=== PATIENT | male | born 1985 | race African-American/Black ===

== ENCOUNTER 2018-04-20 08:10 | Inpatient (IN) | payer SELFPAY ==
[2018-04-20] MEDS ORDERED: Lorazepam 2 MG/ML VIAL ONE ×2 (09:28→10:17)
[2018-04-20] MEDS ORDERED: diphenhydrAMINE 50 MG/ML VIAL ONE (09:49)
[2018-04-20] MEDS ORDERED: Haloperidol Lactate 5 MG/ML VIAL ONE ×2 (09:49→10:19)
[2018-04-20 10:48] LABS: #Basophils 0.1 thou/uL (0.0-0.2); #Lymphocytes 4.4 thou/uL (1.20-3.40); %Basophils 0.6 % (0.0-1.0); %Lymphocytes 32.7 % (21.0-51.0); %Monocytes 7.4 % (0.0-10.0); %Neutrophils 59.3 % (42.0-75.0); Hemoglobin 16.9 g/dL (14.0-18.0); Mean Corpuscular HGB CONC 32.2 g/dL (32.0-36.0); Mean Corpuscular Hemoglobin 28.3 pg (27.0-31.0); Mean Corpuscular Volume 87.9 fL (78.0-98.0); Mean Platelet Volume 8.9 fL (7.4-10.4); Platelet Count 269 thou/uL (130-400); RBC Distribution Width 11.7 % (11.5-14.5); Red Blood Cell (RBC) Count 5.98 mill/uL (4.70-6.10); White Blood Cell (WBC) Count 13.5 thou/uL (4.8-10.8)
[2018-04-20 11:05] LABS: Amphetamine Not Detected (NotDetected); Barbiturates Screen Not Detected (NotDetected); Benzodiazepine Screen Not Detected (NotDetected); Cocaine Metabolite Screen Not Detected (NotDetected); Medtox Control Line Valid? VALID (VALID); Medtox Reader # READER 1; Methadone Not Detected (NotDetected); Methamphetamine Not Detected (NotDetected); Opiate Screen Not Detected (NotDetected); Oxycodone Screen Not Detected (NotDetected); Phencyclidine (PCP) Not Detected (NotDetected); THC/Cannabinoid Screen Detected (NotDetected); Tricyclic Screen Not Detected (NotDetected)
[2018-04-20 11:07] LABS: ALT (SGPT) 47 U/L (8-55); AST (SGOT) 63 U/L (5-34); Acetaminophen Less than 6.0 mcg/mL (10.0-30.0); Albumin 5.5 g/dL (3.5-5.0); Alcohol Less than 10 mg/dL (Less than 10); Alkaline Phosphatase 81 U/L (40-150); Anion Gap 33 mmol/L (10-20); BUN (Urea Nitrogen) 12 mg/dL (8.9-20.6); Bilirubin, Total 1.2 mg/dL (0.2-1.2); Calc. Creatinine Clearance 0 mL/min (70-130); Calcium 10.4 mg/dL (7.8-10.44); Chloride 105 mmol/L (98-107); Estimated GFR-MDRD 67; Globulin 3.8 g/dL (2.4-3.5); Glucose 120 mg/dL (70-105); Potassium 3.5 mmol/L (3.5-5.1); Protein, Total 9.3 g/dL (6.0-8.3); Salicylate Less than 8.0 mg/dL (15.0-30.0); Sodium 143 mmol/L (136-145)
[2018-04-20 11:14] LABS: Carbon Dioxide 9 mmol/L (22-29)
[2018-04-20 12:05] LABS: Troponin I 0.015 ng/mL (< 0.028)
[2018-04-20 12:15] LABS: Base Excess-Venous -1.9 mmol/L (0 (+/- 2.5)); Bicarbonate (HCO3v) 23.8 mmol/L (1.0-85.0); CO2 Tension (PvCO2) 42.7 mmHg (41.0-51.0); Calcium, Ionized 1.11 mmol/L (1.12-1.32); Hemoglobin - Calc 15.4 g/dL (12.0-18.0); O2 Tension (PvO2) 58.4 mmHg (35.0-45.0); Potassium 3.8 mmol/L (3.4-4.7); T. Carbon Dioxide 25.1 mmol/L (1.0-85.0); pH (Venous) 7.353 (7.35-7.45); vO2 Saturation-calc 88.6 % (94-98)
[2018-04-20] MEDS ORDERED: Haloperidol Lactate 5 MG/ML VIAL IM PRN (16:39)
[2018-04-20 16:47] LABS: ALT (SGPT) 47 U/L (8-55); AST (SGOT) 107 U/L (5-34); Albumin 4.4 g/dL (3.5-5.0); Alkaline Phosphatase 62 U/L (40-150); Anion Gap 15 mmol/L (10-20); BUN (Urea Nitrogen) 9 mg/dL (8.9-20.6); Bilirubin, Total 1.3 mg/dL (0.2-1.2); Calc. Creatinine Clearance 0 mL/min (70-130); Calcium 9.2 mg/dL (7.8-10.44); Carbon Dioxide 23 mmol/L (22-29); Chloride 107 mmol/L (98-107); Estimated GFR-MDRD Greater than 90; Globulin 2.9 g/dL (2.4-3.5); Glucose 85 mg/dL (70-105); Potassium 3.9 mmol/L (3.5-5.1); Protein, Total 7.3 g/dL (6.0-8.3); Sodium 141 mmol/L (136-145)
[2018-04-20 17:00] LABS: CK (CPK) 5880 U/L (30-200)
[2018-04-20] MEDS: Sodium Chloride 0.9% 1,000 ML IV SCH ×2 (17:14→23:49)
--- NOTE | 2018-04-20 20:37 | PDOC.FPRHP ---
- History of Present Illness Chief Complaint: AMS History of Present Illness: 32 year old male with PMH of marijuana use that presents with AMS. Patient's states that he has had decreased appetite and some diaphoresis since Wednesday. at 1:15 this AM he was talking in his sleep. She tried to arouse him, but he wouldn't respond to her. The words he was saying did not make since. He apparently watched a movie last night and he was repeating things from the movie. He then got up and started pacing near the side of the bed. Patient has been under a lot of stress lately. He reportedly lost his job in January and has been unemployed since. He does have a history of smoking marijuana. The patient' s states that she does not recall him smoking any time recently. He reportedly took a "sleeping pill" last night. The is uncertain of which pill. ED nurse informed me that a friend was with him earlier and told her that he got the pill off of the streets. Patient has never experienced anything like this in the past. He has no psych history. Prior to this most recent episode he was doing well. At baseline he is kind hearted per the patient's . He got so agitated and combative today that the family had to call EMS to take him to the hospital. ED Course: Given 10 mg haldol, 4 mg ativan, and 25 mg benadryl. Given 2L NS. - Allergies/Adverse Reactions Allergies Allergy/AdvReac Type Severity Reaction Status Date / Time No Known Allergies Allergy Verified 04/20/18 17:59 - Home Medications Medication Instructions Recorded Confirmed Type No Known 04/20/18 04/20/18 History - History PMHx: Marijuana use disorder PSHx: None FHx: History of DM and HTN on mother and father's side. No psych history. Social: Per patient's , he has used marijuana in the past. - Review of Systems ROS unobtainable: due to mental status (Patient's gave brief history given in HPI) - Vital signs BP: 151/85 HR: 93 RR: 21 Tmax: 99.2 F Pox: 100% on RA Wt: 113.4 kg - Physical Exam -Constitutional: Babbling words that did not make sense in context of conversation. Unable to answer direct questions. Appeared agitated and restless. HEENT: normocephalic and atraumatic -HEENT: Dry mucous membranes Neck: supple Heart: RRR, no murmurs/rubs/gallops Lungs: CTAB, no wheezing Abdomen: soft, bowel sounds present -Neurological: Unable to adequately examine -Psychiatric: Agitated, incomprehensible babbling FMR H&P: Results - Labs Result Diagrams: 04/21/18 00:22 04/21/18 00:22 Lab results: WBC 13.5 thou/uL (4.8-10.8) H 04/20/18 10:29 Hgb 16.9 g/dL (14.0-18.0) 04/20/18 10:29 Hct 52.5 % (42.0-52.0) H 04/20/18 10:29 MCV 87.9 fL (78.0-98.0) 04/20/18 10:29 Plt Count 269 thou/uL (130-400) 04/20/18 10:29 Neutrophils % 59.3 % (42.0-75.0) 04/20/18 10:29 VBG pCO2 42.7 mmHg (41.0-51.0) 04/20/18 12:12 VBG pO2 58.4 mmHg (35.0-45.0) H 04/20/18 12:12 Sodium 141 mmol/L (136-145) 04/20/18 16:15 Potassium 3.9 mmol/L (3.5-5.1) 04/20/18 16:15 Chloride 107 mmol/L (98-107) 04/20/18 16:15 Carbon Dioxide 23 mmol/L (22-29) 04/20/18 16:15 BUN 9 mg/dL (8.9-20.6) 04/20/18 16:15 Creatinine 0.96 mg/dL (0.6-1.3) 04/20/18 16:15 Glucose 85 mg/dL (70-105) 04/20/18 16:15 Calcium 9.2 mg/dL (7.8-10.44) 04/20/18 16:15 Total Bilirubin 1.3 mg/dL (0.2-1.2) H 04/20/18 16:15 AST 107 U/L (5-34) H 04/20/18 16:15 ALT 47 U/L (8-55) 04/20/18 16:15 Alkaline Phosphatase 62 U/L (40-150) 04/20/18 16:15 Creatine Kinase 5880 U/L (30-200) H 04/20/18 16:15 CK-MB (CK-2) 6.0 ng/mL (0-6.6) 04/20/18 10:29 Serum Total Protein 7.3 g/dL (6.0-8.3) 04/20/18 16:15 Albumin 4.4 g/dL (3.5-5.0) 04/20/18 16:15 FMR H&P: A/P - Problem List (1) Toxic encephalopathy Current Visit: Yes Status: Acute Code(s): G92 - TOXIC ENCEPHALOPATHY (2) Rhabdomyolysis Current Visit: Yes Status: Acute Code(s): M62.82 - RHABDOMYOLYSIS - Plan 32 year old male presents with AMS 1. Toxic encephalopathy - Likely 2/2 ingestion of unknown drug; states he took "sleeping pill" last night - Continue to monitor - Soft restraints - Haldol PRN for agitation - CT brain pending - LA pending - Mild leukocytosis, will continue to trend; unlikely infection - Continue to monitor 2. Rhabdomyolysis - s/p 2L NS -NS at 200 mL/hr - CPK 3023 --> 5880 - Repeat in AM\\ Dispo: Stable. LOS >48 hours. Likely toxic encephalopathy 2/2 ingestion of unknown drug. Continue fluid resuscitation. FMR H&P: Upper Level - Plan Date/Time: 04/20/182030 I, [], have evaluated this patient and agree with findings/plan as outlined by chief internal auditor resident. Pertinent changes/additions are listed here. Attending Addendum - Attending Addendum Date/Time: 04/21/18 1614 I personally evaluated the patient and discussed the management with Dr. Browne on 04/20/2018 I agree with the History, Examination, Assessment and Plan documented above with any addition or exceptions noted below- Briefly this is a 32 year old gentleman with no known PMH who presented with altered MS. Patient unable to give history due to his altered state. Per ER notes, patient had taken an unknown sleeping pill and then was found altered this morning. PMH/PSH/Meds/All reviewed and agree with resident's documentation. Afebrile VSS. Exam repeated by me and agree with resident's findings. A/P: 1) Toxic encephalopathy- UDS (+) for MJ; suspect ingestion of unknown type. Continue restraints for patient and provider safety. 2) Rhabdomyolysis- Continue IVF. Monitor urine output.
[2018-04-20 22:25] LABS: Lactic Acid 15.8 mmol/L (0.5-2.2)
[2018-04-21 00:36] LABS: #Basophils 0.1 thou/uL (0.0-0.2); #Lymphocytes 3.1 thou/uL (1.20-3.40); #Monocytes 1.1 thou/uL (0.11-0.59); #Neutrophils 5.7 thou/uL (1.40-6.50); %Eosinophils 0.3 % (0.0-10.0); %Neutrophils 56.7 % (42.0-75.0); Hemoglobin 14.4 g/dL (14.0-18.0); Mean Corpuscular HGB CONC 33.5 g/dL (32.0-36.0); Mean Corpuscular Volume 86.7 fL (78.0-98.0); Mean Platelet Volume 8.6 fL (7.4-10.4); Platelet Count 219 thou/uL (130-400); RBC Distribution Width 11.5 % (11.5-14.5); Red Blood Cell (RBC) Count 4.95 mill/uL (4.70-6.10)
[2018-04-21 00:57] LABS: Anion Gap 15 mmol/L (10-20); BUN (Urea Nitrogen) 9 mg/dL (8.9-20.6); Calc. Creatinine Clearance 198 mL/min (70-130); Carbon Dioxide 20 mmol/L (22-29); Chloride 109 mmol/L (98-107); Estimated GFR-MDRD Greater than 90; Glucose 79 mg/dL (70-105); Potassium 3.9 mmol/L (3.5-5.1); Sodium 140 mmol/L (136-145)
[2018-04-21 01:05] LABS: Anion Gap 16 mmol/L (10-20); BUN (Urea Nitrogen) 9 mg/dL (8.9-20.6); Calc. Creatinine Clearance 196 mL/min (70-130); Carbon Dioxide 20 mmol/L (22-29); Chloride 110 mmol/L (98-107); Estimated GFR-MDRD Greater than 90; Glucose 75 mg/dL (70-105); Potassium 3.9 mmol/L (3.5-5.1); Sodium 142 mmol/L (136-145)
[2018-04-21 01:11] LABS: CK (CPK) 4689 U/L (30-200)
[2018-04-21 01:18] LABS: CK (CPK) 4810 U/L (30-200)
[2018-04-21] MEDS: Sodium Chloride 0.9% 1,000 ML IV SCH ×4 (03:52→20:37)
--- NOTE | 2018-04-21 05:28 | PDOC.FM ---
- Subjective Subjective: Pt seems to be more lucid this AM in person compared with mental status as described in notes and at checkout. Pt is oriented to person and place but not time. Pt stated birthday when asked what day it is. Denies any pain or problems but reporting capability is questionable. ROS: unable to obtain. - Objective Vital Signs & Weight: Vital Signs (12 hours) Temp Pulse Resp BP Pulse Ox 04/21/18 04:00 99.1 F 88 23 H 137/79 100 04/21/18 00:00 99.3 F 88 24 H 134/90 100 04/20/18 20:09 99.2 F 93 21 H 100 04/20/18 20:02 99.2 F 93 21 H 151/85 H 100 Weight Weight 113.398 kg I&O: 04/19/18 04/20/18 04/21/18 06:59 06:59 06:59 Intake Total 600 Output Total 0 Balance 600 Result Diagrams: 04/21/18 00:22 04/21/18 00:22 <Solo Jimenez - Last Filed: 04/21/18 08:50> - Objective Vital Signs & Weight: Vital Signs (12 hours) Temp Pulse Resp BP Pulse Ox 04/21/18 12:00 98.4 F 89 17 127/74 100 04/21/18 07:49 98.5 F 85 22 H 04/21/18 07:45 98.5 F 85 22 H 137/79 100 04/21/18 04:00 99.1 F 88 23 H 137/79 100 Weight Weight 113.398 kg I&O: 04/20/18 04/21/18 04/22/18 06:59 06:59 06:59 Intake Total 2700 200 Output Total 1350 Balance 1350 200 Result Diagrams: 04/21/18 00:22 04/21/18 00:22 <Naima Vela - Last Filed: 04/21/18 13:41> Phys Exam - Physical Examination peacefully resting. tried to get up twice. HEENT: moist MMs, sclera anicteric Respiratory: no wheezing, clear to auscultation bilateral Cardiovascular: RRR, no significant murmur Gastrointestinal: soft, non-tender Musculoskeletal: pulses present Neurological: moves all 4 limbs Psychiatric: normal affect Deviation from normal: A and O x2 Skin: no rash, normal turgor <Solo Jimenez - Last Filed: 04/21/18 08:50> Dx/Plan (1) Rhabdomyolysis Code(s): M62.82 - RHABDOMYOLYSIS Status: Acute (2) Toxic encephalopathy Code(s): G92 - TOXIC ENCEPHALOPATHY Status: Acute - Plan Plan: 32 year old male presents with AMS Toxic encephalopathy A- Likely 2/2 ingestion of unknown drug; states he took "sleeping pill" last night, uds positive for canabanoids. LA 15.8 -> .6. Mild leukocytosis resolved. P- Continue to monitor - secure restraints in ED until mental status improves - Haldol PRN for agitation - CT brain pending - Continue to monitor Rhabdomyolysis A- CPK 3023 --> 5880 --> 4689 P- NS at 200 mL/hr - monitor CPK <Solo Jimenez - Last Filed: 04/21/18 08:50> Attending Addendum - Attending Addendum Date/Time: 04/21/18 7282 I personally evaluated the patient and discussed the management with Dr. Jimenez. I agree with the History, Examination, Assessment and Plan documented above with any addition or exceptions noted below. The patient's PAOLO has resolved. He is still encephalopathic though he can answer some orientation questions intermittently. CK mildly decreased. Continuing fluids. Trend CK. <Naima Vela - Last Filed: 04/21/18 13:41>
--- NOTE | 2018-04-21 12:18 | CT ---
CT HEAD NONCONTRAST: HISTORY: Altered mental status. FINDINGS: No comparison. There is no evidence of acute intracranial hemorrhage or infarct. Ventricles appear normal in size, shape, and position. There is no mass effect or shift of midline structures. Visual ized paranasal sinuses remain well aerated. IMPRESSION: No acute intracranial abnormalities are demonstrated. POS: [facility]
[2018-04-21 16:09] LABS: Acetaminophen Less than 6.0 mcg/mL (10.0-30.0); Alcohol Less than 10 mg/dL (Less than 10); Salicylate Less than 8.0 mg/dL (15.0-30.0)
[2018-04-21] MEDS ORDERED: Ondansetron ODT 4 MG TAB SL PRN (19:48)
[2018-04-21] MEDS ORDERED: Acetaminophen 325 MG TAB PO PRN (19:48)
[2018-04-21] MEDS ORDERED: Ondansetron HCl/PF 4 MG/2 ML Vial IVP PRN (19:48)
[2018-04-22] MEDS: Sodium Chloride 0.9% 1,000 ML IV SCH ×5 (00:58→20:08)
--- NOTE | 2018-04-22 06:34 | PDOC.FM ---
- Subjective Subjective: Pt is unrestrained this morning and able to converse well. Reports feeling much better and feeling himself. Only complaint is chills and "shakes" that he has been experiencing for one month now. Reports no recent sick contacts or possible causes of the tremors. No fevers. Reports only canabis and xanax use. Reports using 3 xanax of unkown dosage every day, drinking at least 1 alcoholic beverage per day. Last drink and xanax is reported to be 2 weeks ago. ros: chills, no fevers, no cp no palp, no sob no cough, no n/v - Objective Vital Signs & Weight: Vital Signs (12 hours) Temp Pulse Resp BP BP Pulse Ox 04/22/18 04:00 98.0 F 75 20 134/75 96 04/22/18 00:00 98.2 F 83 20 131/80 97 04/21/18 20:00 98.7 F 79 20 04/21/18 19:25 98.7 F 79 20 132/73 97 Weight Weight 113.398 kg I&O: 04/20/18 04/21/18 04/22/18 06:59 06:59 06:59 Intake Total 2700 4563 Output Total 1350 3650 Balance 1350 913 Result Diagrams: 04/21/18 00:22 04/22/18 07:27 <Solo Jimenez - Last Filed: 04/22/18 08:27> - Objective Vital Signs & Weight: Vital Signs (12 hours) Temp Pulse Resp BP BP BP Pulse Ox 04/23/18 16:00 98.5 F 73 131/82 04/23/18 12:00 98.6 F 75 152/84 H 04/23/18 09:00 98.5 F 76 04/23/18 08:02 133/62 04/23/18 08:00 98.5 F 76 18 100 04/23/18 07:59 98.9 F 70 16 133/62 96 04/23/18 07:40 98.9 F 70 18 133/62 96 04/23/18 06:21 128/80 04/23/18 05:00 128/80 04/23/18 04:41 98.5 F 64 20 128/80 96 Weight Weight 113.398 kg Most Recent Monitor Data Heart Rate from ECG 67 NIBP 131/82 NIBP BP-Mean 118 Respiration from ECG 24 SpO2 100 I&O: 04/22/18 04/23/18 04/24/18 06:59 06:59 06:59 Intake Total 4563 5450 570 Output Total 4050 500 2630 Balance 513 4950 -2060 Result Diagrams: 04/21/18 00:22 04/23/18 03:43 <MirianNaima - Last Filed: 04/23/18 16:28> Phys Exam - Physical Examination Constitutional: NAD HEENT: PERRLA ( ), moist MMs Respiratory: no wheezing, clear to auscultation bilateral Cardiovascular: RRR, no significant murmur Gastrointestinal: soft, non-tender Musculoskeletal: no edema, pulses present Neurological: moves all 4 limbs mild intermittent full body fine tremors Psychiatric: normal affect Deviation from normal: no AVH/SI Skin: no rash, normal turgor <Solo Jimenez - Last Filed: 04/22/18 08:27> Dx/Plan (1) Rhabdomyolysis Code(s): M62.82 - RHABDOMYOLYSIS Status: Acute (2) Toxic encephalopathy Code(s): G92 - TOXIC ENCEPHALOPATHY Status: Acute - Plan Plan: 32 year old male presents with AMS Toxic encephalopathy A- Mental status greatly improved. Likely 2/2 ingestion of unknown drug; states he took "sleeping pill" last night, uds positive for canabanoids. LA 15.8 -> .6. Mild leukocytosis resolved. Pt unrestrained P- Continue to monitor - no restraints necessary - Haldol PRN for agitation - CT brain normal - possible discharge today Rhabdomyolysis A- CPK 3023 --> 5880 --> 4689 -> 3037 P- Decrease NS at 100 mL/hr - monitor CPK Xanax misuse/EtOH use A- pt reports using 3 xanax and at least 1 drink/day with most recent of each being 2 weeks ago. Says shakes and chills started a month ago but pt was not showing these symptoms on presentation. P- initiate ANIA protocol -await serum drug screen -hiv/hepc/rpr <Solo Jimenez - Last Filed: 04/22/18 08:27> Attending Addendum - Attending Addendum Date/Time: 04/22/18 4759 I personally evaluated the patient and discussed the management with Dr. Jimenez. I agree with the History, Examination, Assessment and Plan documented above with any addition or exceptions noted below. The patient is feeling better. He was standing up walking in the room and is A& O x 3. No tremors or shaking at this time. CK has increased. Continue fluids. <Naima Vela - Last Filed: 04/23/18 16:28>
[2018-04-22 08:06] LABS: Anion Gap 13 mmol/L (10-20); BUN (Urea Nitrogen) 6 mg/dL (8.9-20.6); Calc. Creatinine Clearance 218 mL/min (70-130); Carbon Dioxide 23 mmol/L (22-29); Chloride 105 mmol/L (98-107); Estimated GFR-MDRD Greater than 90; Glucose 86 mg/dL (70-105); Potassium 3.8 mmol/L (3.5-5.1); Sodium 137 mmol/L (136-145)
[2018-04-22 08:19] LABS: CK (CPK) 7504 U/L (30-200)
[2018-04-22 09:21] LABS: Syphilis Antibody Nonreactive (Nonreactive); Syphilis Antibody Index 0.14 S/CO (<1.00 Non-Reactive)
[2018-04-22 09:22] LABS: HIV (1/2) Antibody/Antigen Non-Reactive (NonReactive); HIV 1/2 INDEX 0.22 S/CO (<1.00); Hep C IgG Ab Non-Reactive (NonReactive); Hep C Index 0.05 S/CO (0-0.79)
[2018-04-22 09:24] LABS: Acetaminophen Less than 6.0 mcg/mL (10.0-30.0); Alcohol Less than 10 mg/dL (Less than 10); Salicylate Less than 8.0 mg/dL (15.0-30.0)
[2018-04-22] MEDS ORDERED: Sodium Chloride 0.9% 1,000 ML IV SCH (12:45)
--- NOTE | 2018-04-22 17:13 | PRG ---
DATE OF SERVICE: 04/22/2018 The patient was seen in conjunction with Dr. Solo Jimenez. The patient has been admitted for toxic alcohol encephalopathy and rhabdomyolysis. The patient's CK was steadily decreasing, but this morni ng increased from 8972-7040. During rounds this morning, the patient was standing up in his room and stating that he was feeling much better. Earlier this morning, when Dr. Jimenez first saw him, the patient reportedly was having shaking chills and I do know if this accounts for his increase in CK le raimundo. His renal function remained stable with a creatinine of 0.78. To Dr. Underwood this morning, the pa geoff endorsed that he was getting benzos from an unknown source and taking daily as well as drinking alcohol, but he had not had any in a couple of weeks prior to this admission. We will check a TSH t marli. Continue aggressive IV fluids and trending of his CK.
[2018-04-23] MEDS: Sodium Chloride 0.9% 1,000 ML IV SCH ×2 (00:33→05:33)
[2018-04-23 04:34] LABS: ALT (SGPT) 94 U/L (8-55); AST (SGOT) 225 U/L (5-34); Albumin 4.2 g/dL (3.5-5.0); Alkaline Phosphatase 60 U/L (40-150); Anion Gap 13 mmol/L (10-20); BUN (Urea Nitrogen) 5 mg/dL (8.9-20.6); Bilirubin, Total 0.7 mg/dL (0.2-1.2); Calc. Creatinine Clearance 215 mL/min (70-130); Calcium 9.2 mg/dL (7.8-10.44); Carbon Dioxide 22 mmol/L (22-29); Chloride 106 mmol/L (98-107); Estimated GFR-MDRD Greater than 90; Globulin 2.7 g/dL (2.4-3.5); Glucose 98 mg/dL (70-105); Potassium 3.6 mmol/L (3.5-5.1); Protein, Total 6.9 g/dL (6.0-8.3); Sodium 137 mmol/L (136-145)
[2018-04-23 05:01] LABS: CK (CPK) 11941 U/L (30-200)
--- NOTE | 2018-04-23 06:41 | PDOC.FM ---
- Subjective Subjective: Pt reports continued improvement of mental status but also continued tremors and chills. on further interview pt admitted to taking 4 xanax per day with alcohol and that his last dose was 5 days ago, not 2 weeks ago. He also admitted to adderal. Pt is motivated to stop using, motivating factors include his children and drive to be independent of others and self sufficient. No SI/HI/AVH - Objective Vital Signs & Weight: Vital Signs (12 hours) Temp Pulse Resp BP BP Pulse Ox 04/23/18 06:21 128/80 04/23/18 05:00 128/80 04/23/18 04:41 98.5 F 64 20 128/80 96 04/23/18 00:15 98.6 F 55 L 20 107/69 97 04/23/18 00:10 107/69 04/22/18 20:56 132/81 04/22/18 20:00 98.4 F 67 20 132/81 97 Weight Weight 113.398 kg I&O: 04/21/18 04/22/18 04/23/18 06:59 06:59 06:59 Intake Total 2700 4563 5450 Output Total 1350 4050 500 Balance 9032 399 4666 Result Diagrams: 04/21/18 00:22 04/23/18 03:43 <Solo Jimneez - Last Filed: 04/23/18 07:10> - Objective Vital Signs & Weight: Vital Signs (12 hours) Temp Pulse BP 04/23/18 16:00 98.5 F 73 131/82 04/23/18 12:00 98.6 F 75 152/84 H Weight Weight 113.398 kg Most Recent Monitor Data Heart Rate from ECG 82 NIBP 136/74 NIBP BP-Mean 85 Respiration from ECG 32 SpO2 100 I&O: 04/22/18 04/23/18 04/24/18 06:59 06:59 06:59 Intake Total 4563 5450 866.3 Output Total 4050 500 3010 Balance 513 4950 -2143.7 Result Diagrams: 04/21/18 00:22 04/23/18 03:43 <Naima Vela - Last Filed: 04/23/18 22:43> Phys Exam - Physical Examination Pt appears distracted and mildy distressed, fine generalized tremors HEENT: moist MMs, sclera anicteric Respiratory: no wheezing, clear to auscultation bilateral Cardiovascular: RRR, no significant murmur Gastrointestinal: soft, non-tender Musculoskeletal: no edema, pulses present Neurological: normal sensation, moves all 4 limbs Psychiatric: A&O x 3 Deviation from normal: poor eye contact Skin: no rash, normal turgor <Solo Jimenez - Last Filed: 04/23/18 07:10> Dx/Plan (1) Rhabdomyolysis Code(s): M62.82 - RHABDOMYOLYSIS Status: Acute (2) Toxic encephalopathy Code(s): G92 - TOXIC ENCEPHALOPATHY Status: Acute - Plan Plan: 32 year old male presents with AMS Toxic encephalopathy A- Mental status greatly improved. Likely 2/2 ingestion of unknown drug vs xanax with adderall; states he took "sleeping pill" last night, uds positive for canabanoids. LA 15.8 -> .6. Mild leukocytosis resolved. Pt unrestrained P- Continue to monitor - no restraints necessary - Haldol PRN for agitation - CT brain normal - possible discharge today or tomorrow Rhabdomyolysis A- CPK 3023 --> 5880 --> 4689 -> 3037 -->33344. bump likely due to xanax/etoh withdrawal. ASE protocol P- maintain NS at 200 mL/hr - monitor CPK Xanax misuse/EtOH use A- pt reports using 4 xanax and at least 1 drink/day with most recent of each being 5 days ago. Says shakes and chills started a month ago but pt was not showing these symptoms on presentation. P- ANIA protocol -1mg ativan now -repeat urine drug screen -hiv/hepc/rpr negative <MacoupinSolo éprez - Last Filed: 04/23/18 07:10> Attending Addendum - Attending Addendum Date/Time: 04/23/18 0840 I personally evaluated the patient and discussed the management with Dr. Jimenez. I agree with the History, Examination, Assessment and Plan documented above with any addition or exceptions noted below. The patient started having chills and tremors again this morning after doing better yesterday. CK is up to 11,000. Pt's ASE score was 6. Pt was first moved to imcu and now ICU for withdrawal from benzo's. Today he admits to taking xanax and adderall and marijuana. He also admits to using more than first thought and more recently than he first thought. Pt is being started on precedex, continue iv fluids, trend creatinine and CK. <Naima Vela - Last Filed: 04/23/18 22:43>
[2018-04-23] MEDS ORDERED: Lorazepam 1 MG TAB PO SCH (07:15)
--- NOTE | 2018-04-23 08:00 | PDOC.EVN ---
Event Note - Event Note Event Note: Residents paged at 805. Pt has received PO ativan after ANIA score of 6. Pt reports taking xanax, adderall and drinking daily. Last xanax and drink was day prior to admission. He is oriented to person and place but not year. On exam he is diaphoretic and has diffuse tremors but not tachycardic. Starting scheduled librium. <Ginny James - Last Filed: 04/23/18 07:57> - Event Note Event Note: Patient is also being transferred from [place] [id number] to the [facility]. <Naima Vela - Last Filed: 04/23/18 16:57>
[2018-04-23] MEDS ORDERED: Lorazepam 2 MG/ML VIAL SLOW IVP PRN (08:16)
[2018-04-23 09:15] LABS: Amphetamine Not Detected (NotDetected); Barbiturates Screen Not Detected (NotDetected); Benzodiazepine Screen Not Detected (NotDetected); Cocaine Metabolite Screen Not Detected (NotDetected); Medtox Control Line Valid? VALID (VALID); Medtox Reader # READER 4; Methadone Not Detected (NotDetected); Methamphetamine Not Detected (NotDetected); Opiate Screen Not Detected (NotDetected); Oxycodone Screen Not Detected (NotDetected); Phencyclidine (PCP) Not Detected (NotDetected); THC/Cannabinoid Screen Detected (NotDetected); Tricyclic Screen Not Detected (NotDetected)
[2018-04-23] MEDS: Sodium Bicarbonate 70 MEQ in Sodium Chloride 0.45% 1,000 ML IV SCH ×3 (09:50→22:56)
--- NOTE | 2018-04-23 10:11 | CON ---
DATE OF CONSULTATION: 04/23/2018 This consult encompassed 35 minutes critical care time. HISTORY OF PRESENT ILLNESS: This is a 32-year-old male who was admitted to the hospital on 8 by the [facility]. He came in with decreased responsiveness. Apparently, he uses Add erall, Xanax, marijuana and possibly K2 at home. He has developed agitation at a course of his hospi talization and was felt to be in drug withdrawal. At the current time, he is calm, but extremely sha [place]. PAST MEDICAL HISTORY: Marijuana use disorder. PAST SURGICAL HISTORY: None. FAMILY MEDICAL HISTORY: Remarkable for diabetes and hypertension. SOCIAL HISTORY: Uses Xanax on the street, marijuana and Adderall. REVIEW OF SYSTEMS: Twelve point review of systems otherwise negative. PHYSICAL EXAMINATION: VITAL SIGNS: Temperature 98.9, pulse 70, blood pressure 133/62, O2 saturation 96% on room air. HEENT: Unremarkable. NECK: Without adenopathy or JVD. LUNGS: Clear. CARDIOVASCULAR: S1, S2, slightly tachycardic. ABDOMEN: Soft, nontender. EXTREMITIES: No edema. Extremities are tremulous. LABORATORY DATA: White blood cell count 10, hematocrit 42, platelet count 219. Sodium 137, potassiu m 3.6, chloride 106, CO2 22, BUN 5, creatinine 0.7, glucose 98. CPK 11,941. ASSESSMENT: 1. Drug withdrawal. 2. Rhabdomyolysis, which is severe. RECOMMENDATIONS: 1. He needs his IV fluids alkalinized to help eliminate the protein. 2. Start Precedex for withdrawal. 3. Trend his labs.
--- NOTE | 2018-04-23 16:07 | ULT ---
RIGHT UPPER QUADRANT ULTRASOUND: 04/23/18 HISTORY: 32-year-old male with elevated liver enzymes. Liver echogenicity is somewhat coarse and heterogeneous, evidence for minimal nonspecific hepatic par enchymal process. The gallbladder demonstrates no evidence of gallstones, wall thickening, edema, per icholecystic fluid. No ductal dilatation. Visualized pancreas and right kidney are unremarkable. IMPRESSION: Minimal increased coarse liver echogenicity evidence for nonspecific hepatocellular disease. No evide nce of gallstones or ductal dilatation. POS: [facility]
[2018-04-24] MEDS: Sodium Bicarbonate 70 MEQ in Sodium Chloride 0.45% 1,000 ML IV SCH ×5 (05:12→23:03)
--- NOTE | 2018-04-24 05:26 | PDOC.FM ---
- Subjective Subjective: Pt reports feeling better since starting precedex and sodium bicarb yesterday. Reports that tremors have been less severe and that they usually have an onset when the team comes in to the room. Pt refused one dose of librium due to him feeling that the librium makes his tremors worse. ros: no fevers/chills, no cp no palpitations, no n/v - Objective Vital Signs & Weight: Vital Signs (12 hours) Temp Pulse Resp BP Pulse Ox 04/24/18 04:00 98.8 F 141/79 H 04/24/18 00:00 98.7 F 166/88 H 04/23/18 20:00 98.8 F 72 21 H 140/70 100 04/23/18 19:00 156/70 H Weight Weight 113.398 kg Most Recent Monitor Data Heart Rate from ECG 60 NIBP 138/93 NIBP BP-Mean 102 Respiration from ECG 18 SpO2 100 I&O: 04/22/18 04/23/18 04/24/18 06:59 06:59 06:59 Intake Total 4563 5450 1346.3 Output Total 4050 500 4160 Balance 513 4950 -2813.7 Result Diagrams: 04/21/18 00:22 04/24/18 05:09 <Solo Jimenez - Last Filed: 04/24/18 07:31> - Objective Vital Signs & Weight: Vital Signs (12 hours) Temp Pulse Resp BP Pulse Ox 04/24/18 12:00 98.6 F 04/24/18 08:00 97.8 F 72 20 153/88 H 100 Weight Weight 107.7 kg Most Recent Monitor Data Heart Rate from ECG 66 NIBP 141/88 NIBP BP-Mean 102 Respiration from ECG 22 SpO2 98 I&O: 04/23/18 04/24/18 04/25/18 06:59 06:59 06:59 Intake Total 5450 3721.3 720 Output Total 500 5235 2050 Balance 4950 -1513.7 -1330 Result Diagrams: 04/21/18 00:22 04/24/18 05:09 <Naima Vela - Last Filed: 04/24/18 16:18> Phys Exam - Physical Examination Constitutional: NAD HEENT: moist MMs, sclera anicteric Respiratory: no wheezing, clear to auscultation bilateral Cardiovascular: RRR, no significant murmur Gastrointestinal: soft, non-tender Musculoskeletal: pulses present Neurological: normal sensation Psychiatric: normal affect, A&O x 3 <Solo Jimenez - Last Filed: 04/24/18 07:31> Dx/Plan (1) Rhabdomyolysis Code(s): M62.82 - RHABDOMYOLYSIS Status: Acute (2) Toxic encephalopathy Code(s): G92 - TOXIC ENCEPHALOPATHY Status: Acute - Plan Plan: 32 year old male presents with AMS Toxic encephalopathy A- Mental improved. Likely 2/2 ingestion of unknown drug vs xanax with adderall ; states he took "sleeping pill" last night, uds positive for canabanoids. LA 15.8 -> .6. Mild leukocytosis resolved. Now on precedex drip for EtOH/benzo withdrawal P- Continue to monitor - no restraints necessary - Haldol PRN for agitation - CT brain normal Rhabdomyolysis A- CPK 5880 --> 4689 -> 3037 -->07435-->6919. bump likely due to xanax/etoh withdrawal. ASE protocol, librium, precedex P- maintain NS at 200 mL/hr - monitor CPK - monitor Cr Xanax misuse/EtOH use A- pt reports using 4 xanax and at least 1 drink/day with most recent of each being 5 days ago. Says shakes and chills started a month ago but pt was not showing these symptoms on presentation. hiv/hepc/rpr negative. repeat drugscren unchanged P- ANIA protocol -precedex drip -monitor vitals <Solo Jimenez - Last Filed: 04/24/18 07:31> Attending Addendum - Attending Addendum Date/Time: 04/24/18 0617 I personally evaluated the patient and discussed the management with Dr. Jimenez. I agree with the History, Examination, Assessment and Plan documented above with any addition or exceptions noted below. The patient was doing well during my visit and had no tremors. Nursing notes that he did well overnight and that he felt the librium made his symptoms worse. Will swap to ativan as needed. CK is downtrending. Continue IV fluids. Continue to trend CK. On precedex drip. <Naima Vela - Last Filed: 04/24/18 16:18>
[2018-04-24 05:36] LABS: Anion Gap 14 mmol/L (10-20); BUN (Urea Nitrogen) 4 mg/dL (8.9-20.6); Calc. Creatinine Clearance 230 mL/min (70-130); Calcium 9.3 mg/dL (7.8-10.44); Carbon Dioxide 24 mmol/L (22-29); Chloride 105 mmol/L (98-107); Estimated GFR-MDRD Greater than 90; Glucose 101 mg/dL (70-105); Potassium 3.7 mmol/L (3.5-5.1); Sodium 139 mmol/L (136-145)
[2018-04-24 05:49] LABS: CK (CPK) 6919 U/L (30-200)
[2018-04-24 06:46] VITALS: BMI 32.2
[2018-04-24] MEDS: Enoxaparin Sodium 40 MG/0.4 ML SYRINGE SC SCH (08:25)
--- NOTE | 2018-04-24 09:23 | PRG ---
DATE OF SERVICE: 04/24/2018 SUBJECTIVE: The patient is much calmer on the Precedex drip. He has had no seizure type activity. His tremors have stopped. PHYSICAL EXAMINATION: VITAL SIGNS: Temperature is 97.8, pulse 55, blood pressure 154/89. A 24-hour intake 3721, output 52 35. HEENT: Unremarkable. NECK: No JVD. CHEST: Clear without wheezing. CARDIAC: S1 and S2 regular. ABDOMEN: Soft. EXTREMITIES: No edema. LABORATORY DATA: Sodium 139, potassium 3.7, chloride 105, CO2 24, BUN 4, creatinine 0.7, glucose 101 . CPK is down to 6919. ASSESSMENT: 1. Rhabdomyolysis. 2. Benzodiazepine withdrawal. RECOMMENDATIONS: 1. I would continue the half normal saline with bicarbonate for another 24-48 hours. 2. Continue Precedex for another 24 hours and then consider stopping the medication. 3. The patient apparently is having some adverse effects with Librium, so I would recommend holding that and is using as needed Ativan.
[2018-04-25 04:07] LABS: Anion Gap 12 mmol/L (10-20); BUN (Urea Nitrogen) 5 mg/dL (8.9-20.6); CK (CPK) 3541 U/L (30-200); Calc. Creatinine Clearance 213 mL/min (70-130); Calcium 9.3 mg/dL (7.8-10.44); Carbon Dioxide 27 mmol/L (22-29); Chloride 104 mmol/L (98-107); Estimated GFR-MDRD Greater than 90; Glucose 95 mg/dL (70-105); Potassium 3.5 mmol/L (3.5-5.1); Sodium 139 mmol/L (136-145)
[2018-04-25] MEDS: Sodium Bicarbonate 70 MEQ in Sodium Chloride 0.45% 1,000 ML IV SCH ×4 (05:14→20:36)
--- NOTE | 2018-04-25 06:40 | PDOC.FM ---
- Subjective Subjective: Pt reports feeling best he has since he got here. A&Ox3. Pt denies any pain. Denies any tremors. Denies any acute events overnight. No other questions or concerns at this time. - Objective MAR Reviewed: Yes Vital Signs & Weight: Vital Signs (12 hours) Temp Pulse Resp BP Pulse Ox 04/25/18 03:00 98.0 F 04/25/18 00:00 126/58 L 04/24/18 23:00 98.8 F 04/24/18 20:00 116/72 04/24/18 19:26 98.4 F 61 20 99 04/24/18 19:00 98.4 F Weight Weight 106.1 kg Most Recent Monitor Data Heart Rate from ECG 54 NIBP 138/69 NIBP BP-Mean 90 Respiration from ECG 18 SpO2 96 I&O: 04/23/18 04/24/18 04/25/18 06:59 06:59 06:59 Intake Total 5450 3721.3 5286.1 Output Total 500 5235 3600 Balance 4950 -1513.7 1686.1 Result Diagrams: 04/21/18 00:22 04/25/18 03:28 Radiology Reviewed by me: Yes <Sonny Navarro - Last Filed: 04/25/18 06:38> - Objective Vital Signs & Weight: Vital Signs (12 hours) Temp Pulse Resp BP Pulse Ox 04/25/18 08:00 98.2 F 04/25/18 07:19 98.3 F 68 18 99 04/25/18 03:00 98.0 F 04/25/18 00:00 126/58 L 04/24/18 23:00 98.8 F Weight Weight 106.1 kg Most Recent Monitor Data Heart Rate from ECG 63 NIBP 164/91 NIBP BP-Mean 135 Respiration from ECG 24 SpO2 96 I&O: 04/24/18 04/25/18 04/26/18 06:59 06:59 06:59 Intake Total 3721.3 5286.1 259 Output Total 5235 3600 1620 Balance -1513.7 1686.1 -1361 Result Diagrams: 04/21/18 00:22 04/25/18 03:28 <Hilda Bello - Last Filed: 04/25/18 11:03> Phys Exam - Physical Examination Constitutional: NAD HEENT: PERRLA, moist MMs Neck: no nodes, supple, full ROM Respiratory: no wheezing, no rales, no rhonchi, clear to auscultation bilateral Cardiovascular: RRR, no significant murmur, no rub Gastrointestinal: soft, non-tender, no distention, positive bowel sounds Musculoskeletal: no edema, pulses present Neurological: non-focal, normal sensation, moves all 4 limbs No tremors noted. No sign of shaking Lymphatic: no nodes Psychiatric: normal affect, A&O x 3 <MelanieSonny - Last Filed: 04/25/18 06:38> Dx/Plan (1) Drug abuse Code(s): F19.10 - OTHER PSYCHOACTIVE SUBSTANCE ABUSE, UNCOMPLICATED Status: Acute (2) Rhabdomyolysis Code(s): M62.82 - RHABDOMYOLYSIS Status: Acute (3) Toxic encephalopathy Code(s): G92 - TOXIC ENCEPHALOPATHY Status: Acute (4) Transaminitis Code(s): R74.0 - NONSPEC ELEV OF LEVELS OF TRANSAMNS & LACTIC ACID DEHYDRGNSE Status: Acute - Plan Plan: Toxic encephalopathy A- Mental improved. Likely 2/2 ingestion of unknown drug vs xanax with adderall ; states he took "sleeping pill" last night, uds positive for canabanoids. LA 15.8 -> .6. Mild leukocytosis resolved. -Critical Care/Pulm consulted- Dr. Traore follow recs. Now on precedex drip for EtOH/benzo withdrawal. Plan to discontinue today at recs of Dr. Traore Continue to monitor - no restraints necessary - Haldol PRN for agitation, Ativan PRN for withdrawl - CT brain normal Rhabdomyolysis A- CPK 5880 --> 4689 -> 3037 -->84738-->6919--->300s. . ASE protocol, Ativvan and precedex -maintain NS at 200 mL/hr - monitor CPK - monitor Cr- stable at this time Xanax misuse/EtOH use - pt reports using 4 xanax and at least 1 drink/day with most recent of each being 5 days ago. Says shakes and chills started a month ago but pt was not showing these symptoms on presentation. hiv/hepc/rpr negative. repeat drugscren unchanged - ANIA protocol -precedex drip- plan to discontinue this morning -monitor vitals Transaminitis -AST/ALT elevated. Hep C negative. Abdeomen Ultrasound shows changes consistent with nonspecific hepatocellular use. -Possibly due to drug and alcohol use. -Plan to repeat CMP tmrw. If still elevated may consider hepatitis panel. <Sonny Navarro - Last Filed: 04/25/18 06:38> (1) Toxic encephalopathy Code(s): G92 - TOXIC ENCEPHALOPATHY Status: Acute (2) Rhabdomyolysis Code(s): M62.82 - RHABDOMYOLYSIS Status: Acute <Hilda Bello - Last Filed: 04/25/18 11:03> Attending Addendum - Attending Addendum Date/Time: 04/25/18 [id number] I personally evaluated the patient and discussed the management with Dr. Navarro I agree with the History, Examination, Assessment and Plan documented above with any addition or exceptions noted below- Patient denies any complaints. No further tremors. Afebrile VSS. A/P: 1) Benzodiazepine/alcohol withdrawal- on precedex with resolution of symptoms. Weaning drip currently and use ativan prn. 2) Rhabdomyolysis- CK improved. Continue IVF with bicarb. Monitor CK levels. <Hilda Bello - Last Filed: 04/25/18 11:03>
[2018-04-25] MEDS: Enoxaparin Sodium 40 MG/0.4 ML SYRINGE SC SCH (08:49)
--- NOTE | 2018-04-25 09:21 | PRG ---
DATE OF SERVICE: 04/25/2018 SUBJECTIVE: The patient is doing better, had no acute complaints today. PHYSICAL EXAMINATION: VITAL SIGNS: His temperature is 98.3, pulse 60, blood pressure 115/64. A 24-hour intake 5286, outpu t 3600. HEENT: Unremarkable. NECK: No JVD. LUNGS: Clear. CARDIAC: S1 and S2 regular. ABDOMEN: Soft. EXTREMITIES: No edema. LABORATORY DATA: Sodium 139, potassium 3.5, chloride 104, CO2 27, BUN 5, creatinine 0.7. CPK is 354 1. White blood cell count 10, hematocrit 42.9, platelet count 519. ASSESSMENT: 1. Rhabdomyolysis. 2. Xanax withdrawal. PLAN: 1. Wean off the Precedex today. 2. Continue bicarbonate drip until CPK is significantly lower than what it is. 3. Once off the Precedex, he can be transferred out of the CCU.
[2018-04-26] MEDS: Sodium Bicarbonate 70 MEQ in Sodium Chloride 0.45% 1,000 ML IV SCH ×2 (01:11→06:02)
[2018-04-26 11:25] LABS: ALT (SGPT) 105 U/L (8-55); AST (SGOT) 79 U/L (5-34); Albumin 4.9 g/dL (3.5-5.0); Alkaline Phosphatase 70 U/L (40-150); Bilirubin, Direct 0.2 mg/dL (0.1-0.3); Bilirubin, Total 0.6 mg/dL (0.2-1.2); Protein, Total 7.9 g/dL (6.0-8.3)
--- NOTE | 2018-04-26 12:00 | PRG ---
DATE OF SERVICE: 04/26/2018 SUBJECTIVE: Mr. Moreno is doing very well and had no acute complaints today. PHYSICAL EXAMINATION: VITAL SIGNS: Temperature is 98.7, pulse 87, respirations 16, O2 sat 96%, blood pressure 119/82. HEENT: Unremarkable. NECK: No JVD. CHEST: Clear. CARDIAC: S1 and S2 regular. ABDOMEN: Soft. EXTREMITIES: No edema. LABORATORY DATA: CPK 1688. ASSESSMENT: 1. Rhabdomyolysis. 2. Benzodiazepine withdrawal. RECOMMENDATIONS: He can be taken off his IV fluids and he is clinically stable for discharge to home today.
[2018-04-26] MEDS: Enoxaparin Sodium 40 MG/0.4 ML SYRINGE SC SCH (12:10)
[2018-04-26 12:42] LABS: Anion Gap 13 mmol/L (10-20); BUN (Urea Nitrogen) 8 mg/dL (8.9-20.6); Calc. Creatinine Clearance 174 mL/min (70-130); Carbon Dioxide 27 mmol/L (22-29); Chloride 103 mmol/L (98-107); Estimated GFR-MDRD Greater than 90; Glucose 110 mg/dL (70-105); Potassium 3.7 mmol/L (3.5-5.1); Sodium 139 mmol/L (136-145)
[2018-04-26 15:00] VITALS: BP 155/84; TEMP 97.6
== END 2018-04-26 14:59 | disposition home or self-care (01) | DRG 896 ==
LOC: ERS 08:10 → ERHOLD 15:58 → T4-B 04-21 19:12 → CCU 04-23 08:39 → T4-B 04-25 18:40
PROVIDERS: ADMIT Family Medicine; ATTEND Family Medicine
DX: F19.239 Other psychoactive substance dependence with withdrawal, unspecified (principal); G92 Toxic encephalopathy; M62.82 Rhabdomyolysis; R00.0 Tachycardia, unspecified; R74.0 Nonspecific elevation of levels of transaminase and lactic acid dehydrogenase [LDH]; F12.90 Cannabis use, unspecified, uncomplicated; F15.10 Other stimulant abuse, uncomplicated; R25.1 Tremor, unspecified; D72.829 Elevated white blood cell count, unspecified; F10.10 Alcohol abuse, uncomplicated
CPT/HCPCS: 36415; 51701; 70450; 76705; 80048; 80053; 80076; 80306; 80307; 82330; 82550; 82553; 82803; 83605; 83930; 84443; 84484; 85025; 86780; 86803; 87389; 93005; 96360; 96372; A4216; J1200; J1630; J1650; J2060; J7050